=== PATIENT | female | born 1950 | race Two or more races ===

== ENCOUNTER 2024-11-26 22:29 | Emergency (ER) | payer OTHER ==
[~2024-11-26] VITALS: Ht 165.1 cm; Wt 104.3 kg
[2024-11-27] MEDS ORDERED: IBUPROFEN 600 MG TABLET ONE (01:20)
[2024-11-27] MEDS ORDERED: CYCLOBENZAPRINE 10 MG TABLET ONE (01:20)
[2024-11-27] MEDS: CYCLOBENZAPRINE 10 MG TABLET PO ONE (01:20)
[2024-11-27] MEDS: IBUPROFEN 600 MG TABLET PO ONE (01:21)
[2024-11-27] MEDS ORDERED: CYCL5TAB PO (02:31)
[2024-11-27 02:52] VITALS: BP 134/82; TEMP 98.2; O2SAT 98
== END 2024-11-27 02:53 | disposition home or self-care (01) ==
LOC: ER 22:39
DX: M54.6 Pain in thoracic spine (principal); M54.2 Cervicalgia; I10 Essential (primary) hypertension; Z88.0 Allergy status to penicillin; Z88.5 Allergy status to narcotic agent; V89.2XXA Person injured in unspecified motor-vehicle accident, traffic, initial encounter; Y93.89 Activity, other specified; Y92.488 Other paved roadways as the place of occurrence of the external cause; Y99.8 Other external cause status
CPT/HCPCS: 72125-TC; 72128-TC